=== PATIENT | female | born 1990 | race Caucasian/White ===

== ENCOUNTER 2021-07-20 06:42 | Day surgery (SDC) | payer OTHER ==
[~2021-07-20] VITALS: Ht 157.5 cm; Wt 99.8 kg
[2021-07-20] MEDS ORDERED: fentaNYL citrate 0.05 MG/ML VIAL ONE (08:12)
[2021-07-20] MEDS ORDERED: diphenhydrAMINE 50 MG/ML VIAL ONE (08:12)
[2021-07-20] MEDS ORDERED: MIDAZOLAM 5 MG/5 ML VIAL ONE (08:12)
[2021-07-20] MEDS ORDERED: LIDOCAINE 2% 100 MG/5 ML UJET TP ONE (08:12)
[2021-07-20] MEDS ORDERED: diphenhydrAMINE 50 MG/ML VIAL IVP ONE (13:40)
[2021-07-20] MEDS ORDERED: fentaNYL citrate 0.05 MG/ML VIAL IVP ONE (13:40)
[2021-07-20] MEDS ORDERED: MIDAZOLAM 2 MG/2 ML VIAL IVP ONE (13:40)
== END 2021-07-20 09:55 | disposition home or self-care (01) ==
LOC: MMU 06:42 → MDS 06:42
PROVIDERS: ATTEND Internal Medicine Gastroenterology
DX: Z12.11 Encounter for screening for malignant neoplasm of colon (principal); Z86.010 Personal history of colon polyps; I10 Essential (primary) hypertension; E11.9 Type 2 diabetes mellitus without complications; E03.9 Hypothyroidism, unspecified; Z79.4 Long term (current) use of insulin; E78.5 Hyperlipidemia, unspecified; Z79.899 Other long term (current) drug therapy; Z20.822 Contact with and (suspected) exposure to COVID-19
CPT/HCPCS: 45378; 81025; 87426; J1200; J2250; J3010